=== PATIENT | male | born 1965 | race Caucasian/White ===

== ENCOUNTER 2017-03-03 16:04 | Outpatient (CLI) | payer BC, OTHER ==
[2017-03-03 12:47] LABS: BASOPHILS % (AUTO) 0.3 %; EOSINOPHILS # (AUTO) 0.2 10^3/uL (0.0-0.7); EOSINOPHILS % (AUTO) 3.1 %; HCT - HEMATOCRIT 43.7 % (42.0-52.0); HGB - HEMOGLOBIN 14.8 g/dL (14.0-18.0); LYMPHOCYTES # (AUTO) 1.7 10^3/uL (1.5-3.5); LYMPHOCYTES % (AUTO) 30.3 %; MEAN CORPUSCULAR HEMOGLOBIN 29.9 pg (27.0-31.0); MEAN CORPUSCULAR HGB CONC 33.9 g/dL (32.0-36.0); MEAN CORPUSCULAR VOLUME 88.1 fL (80.0-94.0); MEAN PLATELET VOLUME 9.8 fL (7.4-11.4); MONOCYTES # (AUTO) 0.4 10^3/uL (0.0-1.0); MONOCYTES % (AUTO) 6.5 %; NEUTROPHILS # (AUTO) 3.3 10^3/uL (1.5-6.6); NEUTROPHILS % (AUTO) 59.8 %; NUCLEATED RED BLOOD CELLS AUTO 0.1 /100WBC; RED BLOOD COUNT 4.96 10^6/uL (4.70-6.10); RED CELL DISTRIBUTION WIDTH 13.1 % (12.0-15.0); UNCORRECTED WHITE BLOOD COUNT 5.6 x10^3/uL; WHITE BLOOD COUNT 5.6 x10^3/uL (4.8-10.8)
[2017-03-03 13:07] LABS: HEMOGLOBIN A1C 0.59 g/dL
[2017-03-03 13:09] LABS: ALBUMIN/GLOBULIN RATIO 1.5 (1.0-2.2); BILIRUBIN,TOTAL 0.7 mg/dL (0.2-1.0); BUN - BLOOD UREA NITROGEN 11 mg/dL (6-20); CALCIUM 9.1 mg/dL (8.5-10.3); CARBON DIOXIDE - CO2 25 mmol/L (21-32); CHLORIDE 106 mmol/L (101-111); CHOL/HDL RATIO 4.7 (<5.0); CHOLESTEROL 159 mg/dL; CREATININE 0.9 mg/dL (0.6-1.2); GFR - MDRD 89 (>89); GLUCOSE 103 mg/dL (70-100); HDL CHOLESTEROL 34 mg/dL; LDL/HDL RATIO 2.6 (<3.6); POTASSIUM 4.1 mmol/L (3.5-5.0); SODIUM 136 mmol/L (135-145); TOTAL PROTEIN 6.9 g/dL (6.7-8.2); TRIGLYCERIDES 177 mg/dL; VLDL CHOLESTEROL 35 mg/dL
== END 2017-03-03 16:05 | disposition home or self-care (01) ==
LOC: LAB.WCP 16:04
PROVIDERS: ATTEND Family Medicine
DX: Z00.00 Encounter for general adult medical examination without abnormal findings (principal); E78.5 Hyperlipidemia, unspecified; F41.9 Anxiety disorder, unspecified; R03.0 Elevated blood-pressure reading, without diagnosis of hypertension
CPT/HCPCS: 36415; 80053; 80061; 83036; 84443; 85025

== ENCOUNTER 2017-04-21 09:39 | Outpatient (CLI) | payer BC, OTHER | END 2017-04-21 09:40 | LOC: LAB.R 09:39 | PROVIDERS: ATTEND Family Medicine | DX: R05 Cough (principal) | CPT/HCPCS: 87275; 87276 ==

== ENCOUNTER 2017-06-22 09:35 | Outpatient (CLI) | payer BC, OTHER | END 2017-06-22 09:36 | disposition home or self-care (01) | LOC: SC 09:35 | PROVIDERS: ATTEND Internal Medicine Pulmonary Disease | DX: G47.8 Other sleep disorders (principal); R06.83 Snoring | CPT/HCPCS: 99203; 99212 ==

== ENCOUNTER 2018-05-29 01:59 | Inpatient (IN) | payer BC, OTHER ==
--- NOTE | 2018-05-29 02:01 | ED Physician Documentation ---
PD HPI ABD PAIN - Stated complaint Stated Complaint: ABD PX - History obtained from History obtained from: Patient - History of Present Illness Timing - onset: How many hours ago (1) Timing - duration: Hours (1) Timing - details: Abrupt onset Pain level max: 10 Pain level now: 8 Quality: Pain Location: All over / everywhere Radiation: Other (no radiation) Improved by: Laying still Worsened by: Moving, Palpation Associated symptoms: Nausea. No: Fever, Vomiting, Diarrhea, Constipation, Chest pain Similar symptoms before: Has not had sx before Recently seen: Not recently seen - Additional information Additional information: woken from sleep at 1 AM with severe, diffuse abdominal pain. Denies h/o similar symptoms Review of Systems Constitutional: reports: Reviewed and negative Eyes: reports: Reviewed and negative Ears: reports: Reviewed and negative Nose: reports: Reviewed and negative Throat: reports: Reviewed and negative Cardiac: reports: Reviewed and negative Respiratory: reports: Reviewed and negative GI: reports: Abdominal Pain, Abdominal Swelling, Nausea. denies: Vomiting, Constipation, Diarrhea : denies: Dysuria, Frequency, Hematuria Skin: reports: Reviewed and negative Musculoskeletal: reports: Reviewed and negative Neurologic: reports: Reviewed and negative PD PAST MEDICAL HISTORY - Past Medical History Past Medical History: Yes GI: GERD Psych: Depression - Past Surgical History Past Surgical History: Yes General: Appendectomy - Present Medications Home Medications: Ambulatory Orders Medication Instructions Recorded Confirmed FLUoxetine [PROzac] 20 mg PO DAILY 05/29/18 05/29/18 Omeprazole Magnesium [Prilosec] 20 mg PO DAILY 05/29/18 05/29/18 - Allergies Allergies/Adverse Reactions: Allergies Allergy/AdvReac Type Severity Reaction Status Date / Time No Known Drug Allergies Allergy Verified 05/29/18 02:09 - Living Situation Living Arrangement: reports: At home - Social History Does the pt drink ETOH?: Yes ETOH Use: Beer (occasional) PD ED PE NORMAL - Vitals Vital signs reviewed: Yes - General General: Alert and oriented X 3, Well developed/nourished, Other (obvious severe painful distress) - HEENT HEENT: Moist mucous membranes - Neck Neck: Supple, no meningeal sign - Cardiac Cardiac: RRR, No murmur, No gallop, No rub - Respiratory Respiratory: No respiratory distress, Clear bilaterally - Abdomen Abdomen: Normal bowel sounds, Soft, Non distended - Back Back: No CVA TTP - Derm Derm: Normal color, Warm and dry PD ED PE EXPANDED - Abdomen Abdomen: Tender to palpation (diffuse tenderness, worst across upper abdomen) Results - Vitals Vitals: Vital Signs - 24 hr 05/29/18 05/29/18 05/29/18 02:06 02:11 02:15 Temperature 36.3 C L Heart Rate 93 78 80 Respiratory 22 22 22 Rate Blood Pressure 145/99 H 123/89 H 135/91 H O2 Saturation 97 95 95 05/29/18 05/29/18 05/29/18 02:30 02:37 02:55 Temperature Heart Rate 73 71 Respiratory 20 19 30 H Rate Blood Pressure 123/89 H O2 Saturation 96 05/29/18 05/29/18 05/29/18 03:11 03:34 03:37 Temperature Heart Rate 77 75 Respiratory 17 20 15 Rate Blood Pressure 137/88 H O2 Saturation 93 96 Oxygen O2 Source Nasal cannula - EKG (time done) No standard instances Rate: Rate (enter#) (82) Rhythm: NSR Lane: Normal Intervals: Normal FL QRS: Normal Ischemia: Normal ST segments - Labs Labs: Laboratory Tests 05/29/18 05/29/18 05/29/18 02:10 02:10 02:10 WBC 10.4 RBC 5.46 Hgb 16.2 Hct 48.3 MCV 88.5 MCH 29.7 MCHC 33.6 RDW 13.5 Plt Count 224 MPV 9.6 Neut # (Auto) 5.7 Lymph # (Auto) 3.5 [place] # (Auto) 0.9 Eos # (Auto) 0.2 Baso # (Auto) 0.1 Absolute Nucleated RBC 0.02 Nucleated RBC % 0.1 Sodium 140 Potassium 3.8 Chloride 103 Carbon Dioxide 25 Anion Gap 12.0 BUN 18 Creatinine 1.0 Estimated GFR (MDRD) 78 L Glucose 135 H Calcium 9.3 Total Bilirubin 0.9 AST 29 ALT 51 Alkaline Phosphatase 55 Troponin I < 0.04 Total Protein 7.3 Albumin 4.4 Globulin 2.9 Albumin/Globulin Ratio 1.5 Lipase > 4800 H - Rads (name of study) CT A/P (angio) Radiology: Prelim report reviewed, See rad report PD MEDICAL DECISION MAKING - ED course Complexity details: reviewed results, re-evaluated patient, considered differential, d/w patient Departure - Departure Disposition: [facility] DC/Xfer Clinical Impression: Pancreatitis Qualifiers: Chronicity: acute Pancreatitis type: unspecified pancreatitis type Acute pancreatitis complication: no infection or necrosis Qualified Code(s): K85.90 - Acute pancreatitis without necrosis or infection, unspecified Condition: Good Discharge Date/Time: 05/29/18 04:35
[2018-05-29] MEDS ORDERED: SODIUM CHLORIDE 0.9% 1,000 ML IV STA ×2 (02:19→03:27)
[2018-05-29] MEDS ORDERED: HYDROmorphone 1 MG/ML CARPUJECT IVP STA ×3 (02:19→03:27)
[2018-05-29] MEDS ORDERED: ONDANSETRON 4 MG/2 ML VIAL IVP STA (02:19)
[2018-05-29 02:29] LABS: BASOPHILS # (AUTO) 0.1 10^3/uL (0.0-0.1); BASOPHILS % (AUTO) 0.7 %; EOSINOPHILS # (AUTO) 0.2 10^3/uL (0.0-0.7); EOSINOPHILS % (AUTO) 1.9 %; HGB - HEMOGLOBIN 16.2 g/dL (14.0-18.0); LYMPHOCYTES # (AUTO) 3.5 10^3/uL (1.5-3.5); LYMPHOCYTES % (AUTO) 33.5 %; MEAN CORPUSCULAR HEMOGLOBIN 29.7 pg (27.0-31.0); MEAN CORPUSCULAR HGB CONC 33.6 g/dL (32.0-36.0); MEAN CORPUSCULAR VOLUME 88.5 fL (80.0-94.0); MEAN PLATELET VOLUME 9.6 fL (7.4-11.4); MONOCYTES # (AUTO) 0.9 10^3/uL (0.0-1.0); NEUTROPHILS # (AUTO) 5.7 10^3/uL (1.5-6.6); NEUTROPHILS % (AUTO) 54.9 %; PLT - PLATELET COUNT 224 10^3/uL (130-450); RED BLOOD COUNT 5.46 10^6/uL (4.70-6.10); RED CELL DISTRIBUTION WIDTH 13.5 % (12.0-15.0); WHITE BLOOD COUNT 10.4 x10^3/uL (4.8-10.8)
[2018-05-29] MEDS ORDERED: IOVERSOL 320 100 ML VIAL IVP ONE ×2 (02:30→02:58)
[2018-05-29 02:57] LABS: ALBUMIN 4.4 g/dL (3.2-5.5); ALBUMIN/GLOBULIN RATIO 1.5 (1.0-2.2); ALKALINE PHOSPHATASE 55 IU/L (42-121); ALT ALANINE AMINOTRANSFERASE 51 IU/L (10-60); AST ASPARTATE AMINOTRANSFERASE 29 IU/L (10-42); BILIRUBIN,TOTAL 0.9 mg/dL (0.2-1.0); BUN - BLOOD UREA NITROGEN 18 mg/dL (6-20); CALCIUM 9.3 mg/dL (8.5-10.3); CARBON DIOXIDE - CO2 25 mmol/L (21-32); CHLORIDE 103 mmol/L (101-111); GFR - MDRD 78 (>89); GLUCOSE 135 mg/dL (70-100); LIPASE > 4800 U/L (22-51); SODIUM 140 mmol/L (135-145); TOTAL PROTEIN 7.3 g/dL (6.7-8.2)
--- NOTE | 2018-05-29 03:10 | CT Report ---
Reason: abd. pain Procedure Date: 05/29/2018 Accession Number: [id number] / [id number] Procedure: CT - Abdomen/Pelvis Angio CPT Code: FULL RESULT: EXAM: CT ANGIOGRAM ABDOMEN AND PELVIS WITH CONTRAST EXAM DATE: 05/29/2018 02:55 AM. CLINICAL HISTORY: Abdominal pain and vomiting. COMPARISONS: None. TECHNIQUE: Routine helical CT angiogram imaging was performed through the abdomen and pelvis in the arterial phase. IV contrast: 100 ML OPTIRAY 320. Enteric contrast: No. Reconstructions: Coronal, sagittal, and 3D MIP reconstructions. In accordance with CT protocol optimization, one or more of the following dose reduction techniques were utilized for this exam: automated exposure control, adjustment of mA and/or KV based on patient size, or use of iterative reconstructive technique. FINDINGS: Vasculature: No aneurysm, dissection, or significant atherosclerotic disease of the abdominal aorta and iliac arteries. The visualized mesenteric and solid organ vascular structures are also within normal limits. Lung Bases: Bibasilar atelectasis. Small hiatal hernia. Abdominal Solid Organs: Fatty infiltration of the liver. Gallbladder shows no obvious abnormality. Mild splenomegaly measuring 13.1 cm. Pancreatic edema and peripancreatic stranding consistent with pancreatitis. No fluid collections seen. Adrenals are unremarkable. Small right renal cyst. Kidneys are otherwise unremarkable. Peritoneal Cavity: No bowel obstruction seen. Moderate stool in the colon, right greater than left. Trace amount of ascites. No free air. No lymphadenopathy. Pelvic Organs: Normal. The bladder and visualized pelvic organs are within normal limits. Bones: Degenerative disk disease at L5-S1. Other: None. IMPRESSION: 1. Acute pancreatitis. No complications seen. 2. Fatty liver and mild splenomegaly. 3. No aortic aneurysm, dissection, or other significant vascular abnormalities seen. 4. Trace amount of ascites. 5. Hiatal hernia. RADIA
[2018-05-29] MEDS ORDERED: ONDANSETRON 4 MG/2 ML VIAL IVP PRN (03:48)
[2018-05-29] MEDS ORDERED: ONDANSETRON ODT 4 MG TABLET TL PRN (03:48)
--- NOTE | 2018-05-29 04:11 | HISTORY & PHYSICAL EXAMINATION ---
Chief Complaint - Chief Complaint Chief Complaint: sudden onset abd pain, diffuse, at 1 am History of Present Illness - Admitted From Admitted From:: Home/ER - History Obtained From Records Reviewed: [facility] History obtained from: Patient and Dr. Casanova Exam Limitations: None - History of Present Illness HPI Comment/Other: This is a 53 year old obese white male who rarely drinks alcohol, has no history of gallstones that presents w sudden onset of diffuse abdominal pain at 1 am that woke him from sleep. The pain is nonradiating, diffuse, and without scapula or shoulder pain. He has had no antecedent change in the color of his stool or change in his bowel habits. There is no fever, rigors, or chills. Urine is yellow. He has no previous history of colicky abdominal pain. He came to the ER where he is afebrile and his abdominal pain is now more centered around his epigastrium and LUQ once he received IVF and dilaudid. No rebound, guarding. Severe nausea and dry heaves. Distended. Labs are without elevated WBC but his chemistries reveal lipase >4800 with normal LFT's. CTA was done since his presentation indicated possible aortic disease and he has no gallstones, no AAA, but does have evidence of pancreatitis and mild splenomegaly., He is now admitted for acute pancreatitis. History - Past Medical History Cardiovascular: reports: None Respiratory: reports: Sleep apnea (with visit to sleep center 06/2017. no sleep study yet.) Neuro: reports: Other (radiculopathy with neg back films ) Endocrine/Autoimmune: reports: None GI: reports: GERD : reports: Nocturia, Frequency, Other (testicular hypofunction) HEENT: reports: Chronic vision loss Psych: reports: Other (Social anxiety level) Musculoskeletal: reports: None Derm: reports: None MRSA Hx?: No - Past Surgical History General: reports: Appendectomy Ortho: reports: Other (left elbow surgery) - Family & Social History Family History Comment/Other: Mom is 87 and does not have HTN, DM, HPL, dementia, CAD, thyroid disease, cancer. Dad at age 86 of complications of Alzheimers. 5 sisters, 2 brothers: do not have HTN, DM, HPL, dementia, CAD, thyroid disease, cancer. No children Living arrangement: At home Living Situation: With spouse/s.o. Social History Notes: From [place] and came to [facility] 14 years ago. to his first and she has daughters from her first marriage. They live in their own home and no one lives with them. 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 He smoked and did tobacco from age [age], at most 1 ppd. No history of alcohol abuse and drinks approx 1 beer a month. No hx of recreational substance abuse. - Substance History Use: Uses substance without health or social issues: NONE Abuse: Recurrent use of substance despite neg consequences: NONE Dependence: Experiences withdrawal or developed tolerances: NONE - POLST Patient has POLST: No POLST Status: Full Code Meds/Allgy - Home Medications Home Medications: Ambulatory Orders Medication Instructions Recorded Confirmed FLUoxetine [PROzac] 20 mg PO DAILY 05/29/18 05/29/18 Omeprazole Magnesium [Prilosec] 20 mg PO DAILY 05/29/18 05/29/18 - Allergies Allergies/Adverse Reactions: Allergies Allergy/AdvReac Type Severity Reaction Status Date / Time No Known Drug Allergies Allergy Verified 05/29/18 02:09 Review of Systems - Constitutional Constitutional: reports: Diaphoresis (tonight, severe, when he got here). denies: Fatigue, Fever, Chills, Malaise, Weakness, Poor appetite - Eyes Eyes: reports: Vision loss (chronic as he has gotten older). denies: Pain, Irritation, Amaurosis, Blurred vision, Field loss - Ears, Nose & Throat Ears, Nose & Throat: denies: Ear pain, Hearing loss, Hearing aids, Tinnitus, Vertigo, Nasal congestion, Postnasal drainage, Sore throat, Hoarseness - Cardiovascular Cariovascular: denies: Irregular heart rate, Palpitations, Chest pain, Edema, Lightheadedness, Syncope, Exertional dyspnea, Decr. exercise tolerance - Respiratory Respiratory: reports: Apnea (prefers to sleep on his side because of this, doesn't use CPAP). denies: Cough, Sputum production, Wheezing, Snoring, Hemoptysis, Orthopnea - Gastrointestinal Gastrointestinal: reports: Abdominal pain, Abdominal distention, Nausea, Vom iting, Reflux/heartburn. denies: Constipation, Diarrhea, Change in bowel habits, Rectal bleeding, Black stools, Bloody stools, Bile emesis, Sky blood emesis - Genitourinary Genitourinary: reports: Frequency (with decreases stream), Urgency, Nocturia (once.). denies: Dysuria - Musculoskeletal Musculoskeletal: denies: Muscle pain, Back pain, Muscle aches, Stiffness, Gout, Joint pain - Integumentary Integumentary: denies: Rash, Pruritis, Lesions, Dryness, Lumps, Acne - Neurological Neurological: denies: General weakness, Focal weakness, Headache, Dizziness, Memory problems, Pre-existing deficit - Psychiatric Psychiatric: reports: Anxiety (social anxiety). 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 Uses no DME. No pain. No limitations. Exam - Vital Signs Reviewed Vital Signs: Yes Vital Signs: Vital Signs x48h Temp Pulse Resp BP Pulse Ox 05/29/18 04:07 36.5 C 87 17 132/96 H 97 05/29/18 03:54 88 16 137/88 H 96 05/29/18 03:37 75 15 96 05/29/18 03:34 77 20 137/88 H 93 05/29/18 03:11 17 05/29/18 02:55 71 30 H 123/89 H 96 05/29/18 02:37 19 05/29/18 02:30 73 20 05/29/18 02:15 80 22 135/91 H 95 05/29/18 02:11 78 22 123/89 H 95 05/29/18 02:06 36.3 C L 93 22 145/99 H 97 - Physical Exam General Appearance: positive: Alert, Moderate distress (with grimacing, very uncomfortable from his abd pain) Eyes Bilateral: positive: PERRL, EOMI, No scleral icterus ENT: positive: ENT inspection nml, Pharynx nml, No signs of dehydration Neck: positive: No JVD. negative: Stiff neck, Carotid bruit Respiratory: positive: Chest non-tender, Wheezes, Rales, Rhonchi Cardiovascular: positive: Regular rate & rhythm, No murmur, No gallop. negative: Tachycardia Peripheral Pulses: positive: 1+ Abdomen: positive: Other (His abd wall is distended and almost rigid, with pain diffusesly but centered at empigastrium and LUQ. No Navarro-Gerardo. One bowel sound heard. Can't assess for organomegaly from the distension and pain when I palpate.) Back: negative: CVA tenderness (R) Skin: positive: Color nml, No rash, Warm, Dry Extremities: positive: Non-tender, Full ROM, Nml appearance, No pedal edema Neurologic/Psychiatric: positive: Oriented x3, CN's nml (2-12), Motor nml, Sensation nml Reflexes: Bicep (R): 1+, Bicep (L): 1+, Knee (R): 1+, Knee (L): 1+, Ankle (R): 0, Ankle (L): 0 Babinski Reflex: Right: Down, Left: Down Conclusion/Plan - Problem List (1) Acute pancreatitis Conclusion/Plan: I explained that we feel he has pancreatitis and that the usual causes are gallstones or alcohol, of which he has neither. CT of the abdomen shows interstial edematous pancreatitis. Causes have been evaluated. He doesn't have diabetes and there is no history of hypertriglyceridemia. When his blood was drawn tonight, it is normal color. His medications are not associated with pancreatitis. He doesn't have prior surgery nor has there been an ERCP. Other causes could be tumor, pancreas divisum, sphinter of Oddi dysfunction or idiopathic. There is no elevated white cell count, Calcium normal, BUN/Creat are normal, LFT's are normal. There is no organ failure and I explained the difference between mild, moderate or severe pancreatitis. While he is terrible pain, he appears to have mild pancreatitis. [place]'s criteria at 0 hours: all negative (<55, < 16K WBC, <200 glucose, <AST 250, and no LDH done). SAPS 3 has age giving him 5 points and all else 0. Plan: acute inpatient stay for this supportive care with pain meds, antiemetics, NPO status, IVF for hydration This appears to be an isolated event without clear etiology and he would be a candidate for endoscopic US to evaluate for ductal abnormalities, tumor, microlithiasis but we don't have that available here. MRCP can be done but not on the weekends, so we can order for Thursday. Repeat daily CMP. Check CRP FAsting lipid panel this am Recalculate [place]'s criteria at 48 hours. Qualifiers: Pancreatitis type: idiopathic (2) Acid indigestion Conclusion/Plan: Hiatal hernia seen on CT. PPI IV (3) Fatty (change of) liver, not elsewhere classified Conclusion/Plan: pathophysiology and natural history described to patient. He is developing splenomegaly., LFT's are nml. Weight loss advised. Plan: hepatitis serology (4) FRANCOISE (obstructive sleep apnea) Conclusion/Plan: if has severe symptoms while here, consider overnight oxymetry. (5) Full code status Conclusion/Plan: noted. - Lab Results Lab results reviewed: Yes Fish Bones: 05/29/18 02:10 05/29/18 02:10 - Diagnostic Imaging Results Diagnostic Imaging Results: positive: Final report reviewed Diagnostic Imaging Results Comments: EXAM: [id number] CT/ABPEANG ([id number]) Reason: abd. pain Procedure Date: 05/29/2018 Accession Number: [id number] / [id number] Procedure: CT - Abdomen/Pelvis Angio CPT Code: FULL RESULT: EXAM: CT ANGIOGRAM ABDOMEN AND PELVIS WITH CONTRAST EXAM DATE: 05/29/2018 02:55 AM. CLINICAL HISTORY: Abdominal pain and vomiting. COMPARISONS: None. TECHNIQUE: Routine helical CT angiogram imaging was performed through the abdomen and pelvis in the arterial phase. IV contrast: 100 ML OPTIRAY 320. Enteric contrast: No. Reconstructions: Coronal, sagittal, and 3D MIP reconstructions. In accordance with CT protocol optimization, one or more of the following dose reduction techniques were utilized for this exam: automated exposure control, adjustment of mA and/or KV based on patient size, or use of iterative reconstructive technique. FINDINGS: Vasculature: No aneurysm, dissection, or significant atherosclerotic disease of the abdominal aorta and iliac arteries. The visualized mesenteric and solid organ vascular structures are also within normal limits. Lung Bases: Bibasilar atelectasis. Small hiatal hernia. Abdominal Solid Organs: Fatty infiltration of the liver. Gallbladder shows no obvious abnormality. Mild splenomegaly measuring 13.1 cm. Pancreatic edema and peripancreatic stranding consistent with pancreatitis. No fluid collections seen. Adrenals are unremarkable. Small right renal cyst. Kidneys are otherwise unremarkable. Peritoneal Cavity: No bowel obstruction seen. Moderate stool in the colon, right greater than left. Trace amount of ascites. No free air. No lymphadenopathy. Pelvic Organs: Normal. The bladder and visualized pelvic organs are within normal limits. Bones: Degenerative disk disease at L5-S1. Other: None. IMPRESSION: 1. Acute pancreatitis. No complications seen. 2. Fatty liver and mild splenomegaly. 3. No aortic aneurysm, dissection, or other significant vascular abnormalities seen. 4. Trace amount of ascites. 5. Hiatal hernia. Core Measures - Anticipated LOS I expect patient to be DC'd or transferred within 96 hours.: Yes - DVT/VTE - Prophylaxis VTE/DVT Device ordered at admit?: Yes
[2018-05-29] MEDS: SODIUM CHLORIDE 0.9% 1,000 ML IV SCH ×3 (05:32→22:32)
[2018-05-29] MEDS: HYDROmorphone 1 MG/ML CARPUJECT IVP PRN ×2 (05:36→07:56)
[2018-05-29] MEDS: PROCHLORPERAZINE 10 MG/2 ML VIAL IVP PRN ×3 (05:48→22:33)
[2018-05-29] MEDS: SODIUM CHLORIDE FLUSH 0.9% 10 ML SYRINGE IVP PRN ×2 (05:54→06:54)
[2018-05-29] MEDS: PANTOPRAZOLE 40 MG VIAL IVP SCH ×2 (06:54→15:49)
[2018-05-29] MEDS ORDERED: HYDROmorphone PCA 20MG/100ML IV PRN (07:59)
--- NOTE | 2018-05-29 08:01 | PROVIDER PROGRESS NOTE ---
Subjective - Prog Note Date Prog Note Date: 05/29/18 Prog Note Time: 07:55 - Subjective Subjective: With continued abdominal pain not being relieved with current dose of IV dilaudid Is not passing gas No further episodes of emesis since the ER On 2L abdominal pain Current Medications - Current Medications Current Medications: Active Medications Hydromorphone HCl (Dilaudid Product Management Specialist 20mg/100ml) 0 mg IV PRN PRN; Protocol PRN Reason: Abdominal Pain Sodium Chloride (Normal Saline 0.9%) 1,000 mls @ 100 mls/hr IV .Q10H [facility] Last Admin: 05/29/18 05:32 Dose: Not Given Ondansetron HCl (Zofran Inj) 4 mg IVP Q6HR PRN PRN Reason: Nausea / Vomiting Ondansetron HCl (Zofran Odt) 4 mg TL Q6HR PRN PRN Reason: Nausea / Vomiting Pantoprazole Sodium (Protonix) 40 mg IVP BIDAC [facility] Last Admin: 05/29/18 06:54 Dose: 40 mg Polyethylene Glycol (Miralax) 17 gm PO DAILY [facility] Prochlorperazine Edisylate (Compazine Inj) 10 mg IVP Q6HR PRN PRN Reason: Nausea / Vomiting Last Admin: 05/29/18 05:48 Dose: 10 mg Sodium Chloride (Normal Saline Flush 0.9%) 10 ml IVP PRN PRN PRN Reason: NEEDED PER PROVIDER ORDERS Last Admin: 05/29/18 06:54 Dose: 10 ml Sodium Chloride (Normal Saline Flush 0.9%) 10 ml IVP 0100,0900,1700 [facility] Home Medications: FLUoxetine [PROzac] 20 mg PO DAILY 05/29/18 Omeprazole Magnesium [Prilosec] 20 mg PO DAILY 05/29/18 Objective - Vital Signs/Intake & Output Reviewed Vital Signs: Yes Vital Signs: Vital Signs x48h Temp Pulse Pulse Resp BP BP Pulse Ox 05/29/18 04:40 36.4 C L 95 20 124/79 95 05/29/18 04:22 83 20 96 05/29/18 04:07 36.5 C 87 17 132/96 H 97 05/29/18 03:54 88 16 137/88 H 96 05/29/18 03:37 75 15 96 05/29/18 03:34 77 20 137/88 H 93 05/29/18 03:11 17 05/29/18 02:55 71 30 H 123/89 H 96 05/29/18 02:37 19 05/29/18 02:30 73 20 05/29/18 02:15 80 22 135/91 H 95 05/29/18 02:11 78 22 123/89 H 95 05/29/18 02:06 36.3 C L 93 22 145/99 H 97 Intake & Output: Intake & Output 05/26/18 05/27/18 05/28/18 05/29/18 23:59 23:59 23:59 23:59 Intake Total 1000 Balance 1000 - Objective General Appearance: positive: No acute distress, Alert, Other (appears uncomfortable) Eyes Bilateral: positive: Normal inspection, PERRL, EOMI, No scleral icterus ENT: positive: Dry mucous membranes Neck: positive: Nml inspection, No JVD Respiratory: positive: No respiratory distress, Breath sounds nml Cardiovascular: positive: Regular rate & rhythm, No murmur, No gallop. negative: Tachycardia Peripheral Pulses: 2+ Dorsalis pedis (R), 2+ Dorsalis pedis (L) Abdomen: positive: Tenderness, Abnml bowel sounds (Bowel sounds are hypoactive. His abdomen is diffusely tender to palpation. No beltran pinto's sign.), Other. negative: Guarding, Rebound Skin: positive: Warm, Dry Extremities: positive: Non-tender, Full ROM Neurologic/Psychiatric: positive: Oriented x3, CN's nml (2-12), Motor nml, Sensation nml, Mood/affect nml - Lab Results Fish Bones: 05/29/18 02:10 05/29/18 02:10 Other Labs: Lab Results x24hrs 05/29/18 05/29/18 05/29/18 Range/Units 02:10 02:10 02:10 WBC 10.4 (4.8-10.8) x10^3/uL RBC 5.46 (4.70-6.10) 10^6/uL Hgb 16.2 (14.0-18.0) g/dL Hct 48.3 (42.0-52.0) % MCV 88.5 (80.0-94.0) fL MCH 29.7 (27.0-31.0) pg MCHC 33.6 (32.0-36.0) g/dL RDW 13.5 (12.0-15.0) % Plt Count 224 (130-450) 10^3/uL MPV 9.6 (7.4-11.4) fL Neut # (Auto) 5.7 (1.5-6.6) 10^3/uL Lymph # (Auto) 3.5 (1.5-3.5) 10^3/uL [place] # (Auto) 0.9 (0.0-1.0) 10^3/uL Eos # (Auto) 0.2 (0.0-0.7) 10^3/uL Baso # (Auto) 0.1 (0.0-0.1) 10^3/uL Absolute Nucleated RBC 0.02 x10^3/uL Nucleated RBC % 0.1 /100WBC Sodium 140 (135-145) mmol/L Potassium 3.8 (3.5-5.0) mmol/L Chloride 103 (101-111) mmol/L Carbon Dioxide 25 (21-32) mmol/L Anion Gap 12.0 (6-13) BUN 18 (6-20) mg/dL Creatinine 1.0 (0.6-1.2) mg/dL Estimated GFR (MDRD) 78 L (>89) Glucose 135 H (70-100) mg/dL Calcium 9.3 (8.5-10.3) mg/dL Total Bilirubin 0.9 (0.2-1.0) mg/dL AST 29 (10-42) IU/L ALT 51 (10-60) IU/L Alkaline Phosphatase 55 (42-121) IU/L Troponin I < 0.04 (<0.49) ng/mL Total Protein 7.3 (6.7-8.2) g/dL Albumin 4.4 (3.2-5.5) g/dL Globulin 2.9 (2.1-4.2) g/dL Albumin/Globulin Ratio 1.5 (1.0-2.2) Lipase > 4800 H (22-51) U/L Assessment/Plan - Problem List (1) Acute pancreatitis Impression: CT of the abdomen shows interstial edematous pancreatitis. Causes have been evaluated. He doesn't have diabetes and there is no history of hy pertriglyceridemia. His medications are not associated with pancreatitis. He doesn't have prior surgery nor has there been an ERCP. Other ddx includes tumor, pancreas divisum, sphinter of Oddi dysfunction or idiopathic. On admission there was no elevated white cell count, calcium was normal, BUN/Creat normal, LFT's normal. He appears to have mild pancreatitis. [place]'s criteria at 0 hours: all negative (<55, < 16K WBC, <200 glucose, <AST 250, and no LDH done). SAPS 3 has age giving him 5 points and all else 0. This appears to be an isolated event without clear etiology and he would be a candidate for endoscopic US to evaluate for ductal abnormalities, tumor, microlithiasis but we don't have that available here. MRCP can be done but not on the s, so we can order for Thursday. 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 repeat daily CBC and CMP. CRP level pending fasting lipid panel is pending recalculate [place]'s criteria at 48 hours. Qualifiers: Pancreatitis type: idiopathic (2) Acid indigestion Impression: Hiatal hernia seen on CT. Plan: PPI IV (3) Fatty (change of) liver, not elsewhere classified Impression: seen on imaging. He is developing splenomegaly, LFT's are nml. Plan: Weight loss advised. hepatitis serology (4) FRANCOISE (obstructive sleep apnea) Plan: if has severe symptoms while here, consider overnight oximetry. Qualifiers: Pancreatitis type: idiopathic
[2018-05-29 09:38] LABS: BUN - BLOOD UREA NITROGEN 18 mg/dL (6-20); CALCIUM 8.7 mg/dL (8.5-10.3); CARBON DIOXIDE - CO2 26 mmol/L (21-32); CHLORIDE 103 mmol/L (101-111); CREATININE 0.8 mg/dL (0.6-1.2); GFR - MDRD 101 (>89); GLUCOSE 160 mg/dL (70-100); SODIUM 137 mmol/L (135-145)
[2018-05-29 10:08] LABS: CRP - C-REACTIVE PROTEIN < 1.0 mg/dL (0-1.0)
[2018-05-29 10:38] LABS: CHOL/HDL RATIO 4.1 (<5.0); CHOLESTEROL 141 mg/dL; HDL CHOLESTEROL 34 mg/dL; LDL CHOLESTEROL,CALCULATED 86 mg/dL; LDL/HDL RATIO 2.5 (<3.6); VLDL CHOLESTEROL 21 mg/dL
[2018-05-29] MEDS: POLYETHYLENE GLYCOL 3350 17 GM PACKET PO SCH (12:22)
[2018-05-29] MEDS: SODIUM CHLORIDE FLUSH 0.9% 10 ML SYRINGE IVP SCH ×2 (12:23→15:49)
[2018-05-29 16:25] LABS: BILIRUBIN,URINE NEGATIVE (NEGATIVE); CLARITY,URINE CLEAR (CLEAR); GLUCOSE, URINE (UA) NEGATIVE (NEGATIVE); KETONES,URINE (UA) NEGATIVE (NEGATIVE); LEUKOCYTE ESTERASE, URINE NEGATIVE (NEGATIVE); NITRITE,URINE NEGATIVE (NEGATIVE); OCCULT BLOOD,URINE TRACE-INTA (NEGATIVE); PROTEIN,URINE NEGATIVE (NEGATIVE); UROBILINOGEN,URINE 0.2 (NORMAL) E.U./dL (NORMAL)
[2018-05-30] MEDS: SODIUM CHLORIDE FLUSH 0.9% 10 ML SYRINGE IVP SCH ×3 (01:32→15:39)
[2018-05-30 06:13] LABS: BASOPHILS % (AUTO) 0.3 %; LYMPHOCYTES # (AUTO) 0.6 10^3/uL (1.5-3.5); LYMPHOCYTES % (AUTO) 3.3 %; MEAN CORPUSCULAR HEMOGLOBIN 29.3 pg (27.0-31.0); MEAN CORPUSCULAR HGB CONC 32.2 g/dL (32.0-36.0); MEAN CORPUSCULAR VOLUME 91.1 fL (80.0-94.0); MEAN PLATELET VOLUME 9.5 fL (7.4-11.4); MONOCYTES # (AUTO) 0.9 10^3/uL (0.0-1.0); MONOCYTES % (AUTO) 4.9 %; NEUTROPHILS # (AUTO) 16.7 10^3/uL (1.5-6.6); NEUTROPHILS % (AUTO) 91.5 %; PLT - PLATELET COUNT 168 10^3/uL (130-450); RED BLOOD COUNT 5.46 10^6/uL (4.70-6.10); RED CELL DISTRIBUTION WIDTH 13.6 % (12.0-15.0); WHITE BLOOD COUNT 18.2 x10^3/uL (4.8-10.8)
[2018-05-30 06:30] LABS: ALBUMIN 3.7 g/dL (3.2-5.5); ALBUMIN/GLOBULIN RATIO 1.3 (1.0-2.2); BILIRUBIN,TOTAL 1.4 mg/dL (0.2-1.0); CALCIUM 8.7 mg/dL (8.5-10.3); CREATININE 0.7 mg/dL (0.6-1.2); TOTAL PROTEIN 6.6 g/dL (6.7-8.2)
[2018-05-30] MEDS: PANTOPRAZOLE 40 MG VIAL IVP SCH ×2 (06:48→15:39)
[2018-05-30] MEDS: SODIUM CHLORIDE FLUSH 0.9% 10 ML SYRINGE IVP PRN (06:48)
[2018-05-30] MEDS ORDERED: HYDROmorphone PCA 20MG/100ML IV PRN ×3 (06:54→15:07)
[2018-05-30 08:24] LABS: ABG PCO2 47 mmHg (34-45); ABG PH 7.36 (7.35-7.45); ABG PO2 69 mmHg (80-100)
[2018-05-30 08:25] LABS: ABG BASE EXCESS 0.2 mmol/L (-2.0-3.0); ABG HCO3 26.3 mmol/L (22.0-26.0); ABG OXYGEN SATURATION 94 % (94-98); ABG TCO2 27.8 MMOL/L (21.0-29.0); ALLEN TEST POSITIVE
[2018-05-30] MEDS: SENNA 8.6 MG TABLET PO SCH (09:02)
[2018-05-30] MEDS: SODIUM CHLORIDE 0.9% 1,000 ML IV SCH ×2 (09:03→19:34)
[2018-05-30] MEDS: POLYETHYLENE GLYCOL 3350 17 GM PACKET PO SCH (09:04)
--- NOTE | 2018-05-30 12:25 | PROVIDER PROGRESS NOTE ---
Subjective - Prog Note Date Prog Note Date: 05/30/18 Prog Note Time: 08:20 - Subjective Subjective: Patient with uncontrolled pain overnight -- continuous dilaudid was added to his [employer] He reports improved pain control today, but still with alot of pain His lipase level is much improved today, down to 744 WBC up to 18.2 today HR increasing, BP elevated, with a low grade temperature of 37.6 Benson catheter inserted overnight secondary to retention He has burped, but denies passing flatus He is thirsty, requesting ice chips Current Medications - Current Medications Current Medications: Active Medications Hydromorphone HCl (Dilaudid [employer] 20mg/100ml) 0 mg IV PRN PRN; Protocol PRN Reason: Abdominal Pain Sodium Chloride (Normal Saline 0.9%) 1,000 mls @ 100 mls/hr IV .Q10H [facility] Last Admin: 05/30/18 09:03 Dose: 100 mls/hr Ondansetron HCl (Zofran Inj) 4 mg IVP Q6HR PRN PRN Reason: Nausea / Vomiting Ondansetron HCl (Zofran Odt) 4 mg TL Q6HR PRN PRN Reason: Nausea / Vomiting Pantoprazole Sodium (Protonix) 40 mg IVP BIDAC [facility] Last Admin: 05/30/18 06:48 Dose: 40 mg Polyethylene Glycol (Miralax) 17 gm PO DAILY [facility] Last Admin: 05/30/18 09:04 Dose: Not Given Prochlorperazine Edisylate (Compazine Inj) 10 mg IVP Q6HR PRN PRN Reason: Nausea / Vomiting Last Admin: 05/29/18 22:33 Dose: 10 mg Senna (Senokot) 8.6 - 17.2 mg PO DAILY [facility] Last Admin: 05/30/18 09:02 Dose: 8.6 mg Sodium Chloride (Normal Saline Flush 0.9%) 10 ml IVP PRN PRN PRN Reason: NEEDED PER PROVIDER ORDERS Last Admin: 05/30/18 06:48 Dose: 10 ml Sodium Chloride (Normal Saline Flush 0.9%) 10 ml IVP 0100,0900,1700 [facility] Last Admin: 05/30/18 09:03 Dose: Not Given Home medications: FLUoxetine [PROzac] 20 mg PO DAILY 05/29/18 Omeprazole Magnesium [Prilosec] 20 mg PO DAILY 05/29/18 Objective - Vital Signs/Intake & Output Reviewed Vital Signs: Yes Vital Signs: Vital Signs x48h Temp Pulse Pulse Resp BP Pulse Ox 05/30/18 12:17 37.6 C H 110 H 18 94 05/30/18 09:54 18 05/30/18 09:40 37.6 C H 118 H 18 151/92 H 94 05/30/18 08:00 37.5 C 121 H 14 149/98 H 94 05/30/18 06:12 160/100 H 05/30/18 06:04 37.1 C 114 H 20 148/101 H 93 Intake & Output: Intake & Output 05/27/18 05/28/18 05/29/18 05/30/18 23:59 23:59 23:59 23:59 Intake Total 3000 1000 Output Total 1425 575 Balance 1575 425 - Objective General Appearance: positive: No acute distress, Lethargic (will awaken to voice) Eyes Bilateral: positive: Normal inspection, PERRL ENT: positive: Dry mucous membranes Neck: positive: Nml inspection, Trachea midline Respiratory: positive: No respiratory distress (saturating well on 3L NC), Breath sounds nml Cardiovascular: positive: Regular rate & rhythm, Tachycardia Peripheral Pulses: 2+ Dorsalis pedis (R), 2+ Dorsalis pedis (L) Abdomen: positive: Tenderness, Abnml bowel sounds (hypoactive). negative: No distention, Guarding, Rebound Skin: positive: Warm, Dry Neurologic/Psychiatric: positive: Oriented x3, CN's nml (2-12), Motor nml, Sensation nml, Mood/affect nml - Lab Results Fish Bones: 05/30/18 05:52 05/30/18 05:52 Other Labs: Lab Results x24hrs 05/30/18 05/30/18 05/30/18 Range/Units 08:18 05:52 05:52 WBC 18.2 H (4.8-10.8) x10^3/uL RBC 5.46 (4.70-6.10) 10^6/uL Hgb 16.0 (14.0-18.0) g/dL Hct 49.8 (42.0-52.0) % MCV 91.1 (80.0-94.0) fL MCH 29.3 (27.0-31.0) pg MCHC 32.2 (32.0-36.0) g/dL RDW 13.6 (12.0-15.0) % Plt Count 168 (130-450) 10^3/uL MPV 9.5 (7.4-11.4) fL Neut # (Auto) 16.7 H (1.5-6.6) 10^3/uL Lymph # (Auto) 0.6 L (1.5-3.5) 10^3/uL [place] # (Auto) 0.9 (0.0-1.0) 10^3/uL Eos # (Auto) 0.0 (0.0-0.7) 10^3/uL Baso # (Auto) 0.0 (0.0-0.1) 10^3/uL Absolute Nucleated RBC 0.01 x10^3/uL Nucleated RBC % 0.1 /100WBC Bld Gas Analysis Time 0818 Sample Site RIGHT RADIAL ABG pH 7.36 (7.35-7.45) ABG pCO2 47 H (34-45) mmHg ABG pO2 69 L (80-100) mmHg ABG HCO3 26.3 H (22.0-26.0) mmol/L ABG Total CO2 27.8 (21.0-29.0) MMOL/L ABG O2 Saturation 94 (94-98) % ABG Base Excess 0.2 (-2.0-3.0) mmol/L Elijah Test POSITIVE O2 Delivery Device NASAL CANNULA O2 Liters/Min 3.00 LPM Sodium 138 (135-145) mmol/L Potassium 3.8 (3.5-5.0) mmol/L Chloride 103 (101-111) mmol/L Carbon Dioxide 27 (21-32) mmol/L Anion Gap 8.0 (6-13) BUN 19 (6-20) mg/dL Creatinine 0.7 (0.6-1.2) mg/dL Estimated GFR (MDRD) 118 (>89) Glucose 136 H (70-100) mg/dL Calcium 8.7 (8.5-10.3) mg/dL Total Bilirubin 1.4 H (0.2-1.0) mg/dL AST 23 (10-42) IU/L ALT 38 (10-60) IU/L Alkaline Phosphatase 51 (42-121) IU/L Total Protein 6.6 L (6.7-8.2) g/dL Albumin 3.7 (3.2-5.5) g/dL Globulin 2.9 (2.1-4.2) g/dL Albumin/Globulin Ratio 1.3 (1.0-2.2) Amylase 744 H* (28-100) U/L Lipase 348 H (22-51) U/L Urine Color Urine Clarity (CLEAR) Urine pH (5.0-7.5) PH Ur Specific [place] (1.002-1.030) Urine Protein (NEGATIVE) mg/dL Urine Glucose (UA) (NEGATIVE) mg/dL Urine Ketones (NEGATIVE) mg/dL Urine Occult Blood (NEGATIVE) Urine Nitrite (NEGATIVE) Urine Bilirubin (NEGATIVE) Urine Urobilinogen (NORMAL) E.U./dL Ur Leukocyte Esterase (NEGATIVE) Ur Microscopic Review Urine Culture Comments 05/29/18 05/29/18 Range/Units 17:20 16:05 WBC (4.8-10.8) x10^3/uL RBC (4.70-6.10) 10^6/uL Hgb (14.0-18.0) g/dL Hct (42.0-52.0) % MCV (80.0-94.0) fL MCH (27.0-31.0) pg MCHC (32.0-36.0) g/dL RDW (12.0-15.0) % Plt Count (130-450) 10^3/uL MPV (7.4-11.4) fL Neut # (Auto) (1.5-6.6) 10^3/uL Lymph # (Auto) (1.5-3.5) 10^3/uL [place] # (Auto) (0.0-1.0) 10^3/uL Eos # (Auto) (0.0-0.7) 10^3/uL Baso # (Auto) (0.0-0.1) 10^3/uL Absolute Nucleated RBC x10^3/uL Nucleated RBC % /100WBC Bld Gas Analysis Time Sample Site ABG pH (7.35-7.45) ABG pCO2 (34-45) mmHg ABG pO2 (80-100) mmHg ABG HCO3 (22.0-26.0) mmol/L ABG Total CO2 (21.0-29.0) MMOL/L ABG O2 Saturation (94-98) % ABG Base Excess (-2.0-3.0) mmol/L Elijah Test O2 Delivery Device O2 Liters/Min LPM Sodium (135-145) mmol/L Potassium 4.0 (3.5-5.0) mmol/L Chloride (101-111) mmol/L Carbon Dioxide (21-32) mmol/L Anion Gap (6-13) BUN (6-20) mg/dL Creatinine (0.6-1.2) mg/dL Estimated GFR (MDRD) (>89) Glucose (70-100) mg/dL Calcium (8.5-10.3) mg/dL Total Bilirubin (0.2-1.0) mg/dL AST (10-42) IU/L ALT (10-60) IU/L Alkaline Phosphatase (42-121) IU/L Total Protein (6.7-8.2) g/dL Albumin (3.2-5.5) g/dL Globulin (2.1-4.2) g/dL Albumin/Globulin Ratio (1.0-2.2) Amylase (28-100) U/L Lipase (22-51) U/L Urine Color YELLOW Urine Clarity CLEAR (CLEAR) Urine pH 5.0 (5.0-7.5) PH Ur Specific [place] 1.025 (1.002-1.030) Urine Protein NEGATIVE (NEGATIVE) mg/dL Urine Glucose (UA) NEGATIVE (NEGATIVE) mg/dL Urine Ketones NEGATIVE (NEGATIVE) mg/dL Urine Occult Blood [place] (NEGATIVE) Urine Nitrite NEGATIVE (NEGATIVE) Urine Bilirubin NEGATIVE (NEGATIVE) Urine Urobilinogen 0.2 (NORMAL) (NORMAL) E.U./dL Ur Leukocyte Esterase NEGATIVE (NEGATIVE) Ur Microscopic Review NOT INDICATED Urine Culture Comments NOT INDICATED Assessment/Plan - Problem List (1) Acute pancreatitis Impression: CT of the abdomen shows interstial edematous pancreatitis. Causes have been evaluated. He doesn't have diabetes nor elevated triglycerides. His medications are not associated with pancreatitis. He doesn't have prior surgery nor has there been an ERCP. Other ddx includes tumor, pancreas divisum, sphinter of Oddi dysfunction or idiopathic. On admission there was no elevated white cell count, calcium was normal, BUN/Creat normal, LFT's normal. He appears to have mild pancreatitis. Metuchen's criteria at 0 hours: all negative (<55, < 16K WBC, <200 glucose, <AST 250, and no LDH done). SAPS 3 has age giving him 5 points and all else 0. This appears to be an isolated event without clear etiology and he would be a candidate for endoscopic US to evaluate for ductal abnormalities, tumor, microlithiasis but we don't have that available here. CRP was <1. His pain was not controlled overnight so a basal rate was started on his [employer]. His WBC is elevated today to 18.2, he has a low grade temperature and his heart rate has been elevated. Metuchen's criteria at 48 hours is 0: Hct stable, BUN increased by 1, Ca >8, Arterial Po2 >60, base deficit <4, fluid needs <6L. Plan: continue supportive care with pain meds, antiemetics, IVF for hydration ice chips for comfort repeat daily CBC and CMP. will consider obtaining MRCP tomorrow Qualifiers: Pancreatitis type: idiopathic (2) Acid indigestion Impression: Hiatal hernia seen on CT. Plan: PPI IV (3) Fatty (change of) liver, not elsewhere classified Impression: seen on imaging. He is developing splenomegaly, LFT's are nml. Plan: Weight loss advised. hepatitis serology pending (4) FRANCOISE (obstructive sleep apnea) Impression: ABG today 7.36/47.4/26.3/68.8 Plan: if has severe symptoms while here, consider overnight oximetry. while patient is on high doses of narcotics, watch his respiratory status closely Qualifiers: Pancreatitis type: idiopathic Qualifiers: Pancreatitis type: idiopathic
[2018-05-31] MEDS: SODIUM CHLORIDE FLUSH 0.9% 10 ML SYRINGE IVP SCH ×3 (04:25→17:27)
[2018-05-31 05:14] LABS: BASOPHILS % (AUTO) 0.1 %; HGB - HEMOGLOBIN 15.1 g/dL (14.0-18.0); LYMPHOCYTES # (AUTO) 0.7 10^3/uL (1.5-3.5); LYMPHOCYTES % (AUTO) 4.4 %; MEAN CORPUSCULAR HEMOGLOBIN 29.7 pg (27.0-31.0); MEAN CORPUSCULAR HGB CONC 32.5 g/dL (32.0-36.0); MEAN CORPUSCULAR VOLUME 91.3 fL (80.0-94.0); MEAN PLATELET VOLUME 9.7 fL (7.4-11.4); MONOCYTES # (AUTO) 1.2 10^3/uL (0.0-1.0); MONOCYTES % (AUTO) 7.1 %; NEUTROPHILS # (AUTO) 14.4 10^3/uL (1.5-6.6); NEUTROPHILS % (AUTO) 88.4 %; PLT - PLATELET COUNT 142 10^3/uL (130-450); RED BLOOD COUNT 5.06 10^6/uL (4.70-6.10); WHITE BLOOD COUNT 16.3 x10^3/uL (4.8-10.8)
[2018-05-31] MEDS: SODIUM CHLORIDE 0.9% 1,000 ML IV SCH ×2 (05:23→15:57)
[2018-05-31 05:55] LABS: ALBUMIN 3.3 g/dL (3.2-5.5); ALBUMIN/GLOBULIN RATIO 1.1 (1.0-2.2); CALCIUM 8.8 mg/dL (8.5-10.3); CREATININE 0.8 mg/dL (0.6-1.2); TOTAL PROTEIN 6.2 g/dL (6.7-8.2)
[2018-05-31] MEDS: SODIUM CHLORIDE FLUSH 0.9% 10 ML SYRINGE IVP PRN (06:16)
[2018-05-31] MEDS: PANTOPRAZOLE 40 MG VIAL IVP SCH ×2 (06:16→16:11)
[2018-05-31] MEDS ORDERED: IOVERSOL 320 100 ML VIAL IVP ONE ×2 (07:53→09:48)
[2018-05-31] MEDS ORDERED: IOVERSOL 320 50 ML VIAL ONE (07:53)
[2018-05-31] MEDS: MEROPENEM 1 GM in SODIUM CHLORIDE 0.9% MINIBAG 100 ML IV SCH ×2 (09:02→16:06)
[2018-05-31] MEDS ORDERED: IOVERSOL 320 50 ML VIAL PO ONE (09:48)
--- NOTE | 2018-05-31 10:02 | CT Report ---
Reason: admitted with pancreatitis, now with elevated wbc Procedure Date: 05/31/2018 Accession Number: [id number] / [id number] Procedure: CT - Abdomen/Pelvis W/ CPT Code: FULL RESULT: EXAM: CT ABDOMEN AND PELVIS EXAM DATE: 05/31/2018 09:46 AM. CLINICAL HISTORY: Pancreatitis now WBC COMPARISONS: ABDOMEN/PELVIS ANGIO 05/29/2018 2:43 AM. TECHNIQUE: Routine helical CT imaging was performed through the abdomen and pelvis. IV contrast: OPTI 320 100mL. Enteric contrast: No. Reconstructions: Coronal and sagittal. In accordance with CT protocol optimization, one or more of the following dose reduction techniques were utilized for this exam: automated exposure control, adjustment of mA and/or KV based on patient size, or use of iterative reconstructive technique. FINDINGS: Lung Bases: Linear changes are noted in the lung bases that most likely represent atelectasis. Small bilateral pleural effusions are noted. These findings are new since the previous study. Solid organs: There is diffuse fatty infiltration of the liver. The spleen is normal in appearance. There is redemonstration of extensive fat stranding surrounding the pancreas consistent with the known acute pancreatitis. Fluid is noted within both paracolic gutters. A small amount of free fluid is seen within the pelvis. There is no focal fluid collection to suggest the presence of an abscess. Decreased enhancement is noted with in the head and proximal body of the pancreas measuring approximately 4.3 x 3.1 cm (image 40 of series 3). This may represent pancreatic necrosis. The kidneys are without evidence of an enhancing mass or hydronephrosis. Peritoneal Cavity/Bowel: There are no dilated loops of bowel to suggest the presence of an obstruction. The appendix is not clearly identified. There is no CT evidence of acute appendicitis. Pelvic Organs: A moderate amount of free fluid is noted that is new since the previous study. No mass or cyst is identified. Vasculature: There is no evidence of an abdominal aortic aneurysm. Bones: There are degenerative changes of the lumbar spine. IMPRESSION: Redemonstration of acute pancreatitis with probable pancreatic necrosis involving the head and proximal body of the pancreas. Interval increase in the free peritoneal fluid without definite evidence of an abscess. New, small bilateral pleural effusions. New, increased lung markings in both lung bases but most likely represent atelectasis and less likely infiltrates. RADIA
[2018-05-31] MEDS ORDERED: ACETAMINOPHEN 650 MG SUPP PR PRN (10:18)
[2018-05-31] MEDS: ACETAMINOPHEN 325 MG TABLET PO PRN ×2 (10:30→16:18)
[2018-05-31] MEDS: POLYETHYLENE GLYCOL 3350 17 GM PACKET PO SCH (10:30)
[2018-05-31] MEDS: SENNA 8.6 MG TABLET PO SCH (10:30)
[2018-05-31 13:46] LABS: HEPATITIS B SURFACE ANTIGEN NON-REACTIVE (NON-REACTIVE); HEPATITIS C ANTIBODY NON-REACTIVE (NON-REACTIVE)
--- NOTE | 2018-05-31 14:14 | PROVIDER PROGRESS NOTE ---
Subjective - Prog Note Date Prog Note Date: 05/31/18 Prog Note Time: 08:00 - Subjective Subjective: Patient reports improved abdominal pain He is in the middle of drinking his contrast for his CT scan He complains of indigestion He was able to ambulate to sit in the chair WBC down to 16 CRP elevated to 27 Tbili increased to 2.0 HR remains elevated Meropenem started this morning Spoke in length with patient's daughter, Yuliya this morning on the phone. Current Medications - Current Medications Current Medications: Acetaminophen (Tylenol) 650 mg IA Q6HR PRN PRN Reason: Pain or Fever > 38C (100.4F) Acetaminophen (Tylenol) 650 mg PO Q6HR PRN PRN Reason: Pain or Fever > 38C (100.4F) Last Admin: 05/31/18 10:30 Dose: 650 mg Hydromorphone HCl (Dilaudid [employer]per 20mg/100ml) 0 mg IV PRN PRN; Protocol PRN Reason: Abdominal Pain Last Admin: 05/30/18 15:43 Dose: 0.2 mg Sodium Chloride (Normal Saline 0.9%) 1,000 mls @ 100 mls/hr IV .Q10H [facility] Last Admin: 05/31/18 05:23 Dose: 100 mls/hr Meropenem 1 gm/ Sodium (Chloride) 100 mls @ 200 mls/hr IV Q8H [facility] Last Infusion: 05/31/18 09:40 Dose: Infused Ondansetron HCl (Zofran Inj) 4 mg IVP Q6HR PRN PRN Reason: Nausea / Vomiting Ondansetron HCl (Zofran Odt) 4 mg TL Q6HR PRN PRN Reason: Nausea / Vomiting Pantoprazole Sodium (Protonix) 40 mg IVP BIDAC [facility] Last Admin: 05/31/18 06:16 Dose: 40 mg Polyethylene Glycol (Miralax) 17 gm PO DAILY [facility] Last Admin: 05/31/18 10:30 Dose: 17 gm Prochlorperazine Edisylate (Compazine Inj) 10 mg IVP Q6HR PRN PRN Reason: Nausea / Vomiting Last Admin: 05/29/18 22:33 Dose: 10 mg Senna (Senokot) 8.6 - 17.2 mg PO DAILY [facility] Last Admin: 05/31/18 10:30 Dose: 8.6 mg Sodium Chloride (Normal Saline Flush 0.9%) 10 ml IVP PRN PRN PRN Reason: NEEDED PER PROVIDER ORDERS Last Admin: 05/31/18 06:16 Dose: 10 ml Sodium Chloride (Normal Saline Flush 0.9%) 10 ml IVP 0100,0900,1700 [facility] Last Admin: 05/31/18 09:40 Dose: Not Given Home Medications: FLUoxetine [PROzac] 20 mg PO DAILY 05/29/18 Omeprazole Magnesium [Prilosec] 20 mg PO DAILY 05/29/18 Objective - Vital Signs/Intake & Output Reviewed Vital Signs: Yes Vital Signs: Vital Signs x48h Temp Pulse Resp BP Pulse Ox 05/31/18 14:00 16 05/31/18 13:31 37.2 C 120 H 16 130/82 H 92 05/31/18 12:00 16 05/31/18 10:00 16 05/31/18 08:00 37.4 C 117 H 16 135/90 H 93 Intake & Output: Intake & Output 05/28/18 05/29/18 05/30/18 05/31/18 23:59 23:59 23:59 23:59 Intake Total 3000 2150 1331.667 Output Total 1425 1275 2100 Balance 1575 875 -768.333 - Objective General Appearance: positive: No acute distress Eyes Bilateral: positive: Normal inspection, PERRL, EOMI ENT: positive: ENT inspection nml, Pharynx nml Neck: positive: Nml inspection, Trachea midline Respiratory: positive: No respiratory distress, Breath sounds nml (diminished bases). negative: Wheezes, Rales, Rhonchi Cardiovascular: positive: Regular rate & rhythm, Tachycardia. negative: No murmur, No gallop Peripheral Pulses: 2+ Dorsalis pedis (R), 2+ Dorsalis pedis (L) Abdomen: positive: Tenderness, Other (distended. hypoactive bowel sounds). negative: Guarding, Rebound Skin: positive: Warm, Dry Extremities: positive: Non-tender, Full ROM Neurologic/Psychiatric: positive: Oriented x3, CN's nml (2-12), Motor nml, Sensation nml, Mood/affect nml - Lab Results Fish Bones: 05/31/18 04:30 05/31/18 04:30 Other Labs: Lab Results x24hrs 05/31/18 05/31/18 05/29/18 Range/Units 04:30 04:30 10:40 WBC 16.3 H (4.8-10.8) x10^3/uL RBC 5.06 (4.70-6.10) 10^6/uL Hgb 15.1 (14.0-18.0) g/dL Hct 46.2 (42.0-52.0) % MCV 91.3 (80.0-94.0) fL MCH 29.7 (27.0-31.0) pg MCHC 32.5 (32.0-36.0) g/dL RDW 14.0 (12.0-15.0) % Plt Count 142 (130-450) 10^3/uL MPV 9.7 (7.4-11.4) fL Neut # (Auto) 14.4 H (1.5-6.6) 10^3/uL Lymph # (Auto) 0.7 L (1.5-3.5) 10^3/uL [place] # (Auto) 1.2 H (0.0-1.0) 10^3/uL Eos # (Auto) 0.0 (0.0-0.7) 10^3/uL Baso # (Auto) 0.0 (0.0-0.1) 10^3/uL Absolute Nucleated RBC 0.00 x10^3/uL Nucleated RBC % 0.0 /100WBC Sodium 141 (135-145) mmol/L Potassium 3.8 (3.5-5.0) mmol/L Chloride 104 (101-111) mmol/L Carbon Dioxide 28 (21-32) mmol/L Anion Gap 9.0 (6-13) BUN 19 (6-20) mg/dL Creatinine 0.8 (0.6-1.2) mg/dL Estimated GFR (MDRD) 101 (>89) Glucose 114 H (70-100) mg/dL Calcium 8.8 (8.5-10.3) mg/dL Total Bilirubin 2.0 H (0.2-1.0) mg/dL AST 21 (10-42) IU/L ALT 28 (10-60) IU/L Alkaline Phosphatase 45 (42-121) IU/L C-Reactive Protein 27.0 H (0-1.0) mg/dL Total Protein 6.2 L (6.7-8.2) g/dL Albumin 3.3 (3.2-5.5) g/dL Globulin 2.9 (2.1-4.2) g/dL Albumin/Globulin Ratio 1.1 (1.0-2.2) Amylase 504 H* (28-100) U/L Lipase 164 H (22-51) U/L Hepatitis A IgM Ab (NON-REACTIVE) Hep Bs Antigen (NON-REACTIVE) Hep Bs Immunity Index (> OR = 10) mIU/mL Hep B Core Total Ab (NON-REACTIVE) Hepatitis C Antibody NON-REACTIVE (NON-REACTIVE) Hep C Ab Signal/Cutoff 0.00 (<1.00) 05/29/18 05/29/18 05/29/18 Range/Units 10:40 10:40 06:11 WBC (4.8-10.8) x10^3/uL RBC (4.70-6.10) 10^6/uL Hgb (14.0-18.0) g/dL Hct (42.0-52.0) % MCV (80.0-94.0) fL MCH (27.0-31.0) pg MCHC (32.0-36.0) g/dL RDW (12.0-15.0) % Plt Count (130-450) 10^3/uL MPV (7.4-11.4) fL Neut # (Auto) (1.5-6.6) 10^3/uL Lymph # (Auto) (1.5-3.5) 10^3/uL [place] # (Auto) (0.0-1.0) 10^3/uL Eos # (Auto) (0.0-0.7) 10^3/uL Baso # (Auto) (0.0-0.1) 10^3/uL Absolute Nucleated RBC x10^3/uL Nucleated RBC % /100WBC Sodium (135-145) mmol/L Potassium (3.5-5.0) mmol/L Chloride (101-111) mmol/L Carbon Dioxide (21-32) mmol/L Anion Gap (6-13) BUN (6-20) mg/dL Creatinine (0.6-1.2) mg/dL Estimated GFR (MDRD) (>89) Glucose (70-100) mg/dL Calcium (8.5-10.3) mg/dL Total Bilirubin (0.2-1.0) mg/dL AST (10-42) IU/L ALT (10-60) IU/L Alkaline Phosphatase (42-121) IU/L C-Reactive Protein (0-1.0) mg/dL Total Protein (6.7-8.2) g/dL Albumin (3.2-5.5) g/dL Globulin (2.1-4.2) g/dL Albumin/Globulin Ratio (1.0-2.2) Amylase (28-100) U/L Lipase (22-51) U/L Hepatitis A IgM Ab NON-REACTIVE (NON-REACTIVE) Hep Bs Antigen NON-REACTIVE (NON-REACTIVE) Hep Bs Immunity Index <5 L (> OR = 10) mIU/mL Hep B Core Total Ab (NON-REACTIVE) Hepatitis C Antibody (NON-REACTIVE) Hep C Ab Signal/Cutoff (<1.00) 05/29/18 Range/Units 06:11 WBC (4.8-10.8) x10^3/uL RBC (4.70-6.10) 10^6/uL Hgb (14.0-18.0) g/dL Hct (42.0-52.0) % MCV (80.0-94.0) fL MCH (27.0-31.0) pg MCHC (32.0-36.0) g/dL RDW (12.0-15.0) % Plt Count (130-450) 10^3/uL MPV (7.4-11.4) fL Neut # (Auto) (1.5-6.6) 10^3/uL Lymph # (Auto) (1.5-3.5) 10^3/uL [place] # (Auto) (0.0-1.0) 10^3/uL Eos # (Auto) (0.0-0.7) 10^3/uL Baso # (Auto) (0.0-0.1) 10^3/uL Absolute Nucleated RBC x10^3/uL Nucleated RBC % /100WBC Sodium (135-145) mmol/L Potassium (3.5-5.0) mmol/L Chloride (101-111) mmol/L Carbon Dioxide (21-32) mmol/L Anion Gap (6-13) BUN (6-20) mg/dL Creatinine (0.6-1.2) mg/dL Estimated GFR (MDRD) (>89) Glucose (70-100) mg/dL Calcium (8.5-10.3) mg/dL Total Bilirubin (0.2-1.0) mg/dL AST (10-42) IU/L ALT (10-60) IU/L Alkaline Phosphatase (42-121) IU/L C-Reactive Protein (0-1.0) mg/dL Total Protein (6.7-8.2) g/dL Albumin (3.2-5.5) g/dL Globulin (2.1-4.2) g/dL Albumin/Globulin Ratio (1.0-2.2) Amylase (28-100) U/L Lipase (22-51) U/L Hepatitis A IgM Ab (NON-REACTIVE) Hep Bs Antigen (NON-REACTIVE) Hep Bs Immunity Index (> OR = 10) mIU/mL Hep B Core Total Ab NON-REACTIVE (NON-REACTIVE) Hepatitis C Antibody (NON-REACTIVE) Hep C Ab Signal/Cutoff (<1.00) - Diagnostic Imaging Diagnostic Imaging Results: positive: Final report reviewed Diagnostic Imaging Comments: CT Scan abdomen/pelvis with IV contrast 05/31/2018 -- Redemonstration of acute pancreatitis with probably pancreatic necrosis involving the head and proximal body of the pancreas. Interval increase in the free peritoneal fluid without definite evidence of an abscess. ABX Reporting Has patient been on IV antibiotics over the past 48 hours?: Yes Assessment/Plan - Problem List (1) Acute pancreatitis Impression: CT of the abdomen showed interstial edematous pancreatitis. Causes have been evaluated. He doesn't have diabetes nor elevated triglycerides. His medications are not associated with pancreatitis. He doesn't have prior surgery nor has there been an ERCP. Other ddx includes tumor, pancreas divisum, sphinter of Oddi dysfunction or idiopathic. On admission there was no elevated white cell count, calcium was normal, BUN/Creat normal, LFT's normal. He appears to have mild pancreatitis. Billy's criteria at 0 hours: all negative (<55, < 16K WBC, <200 glucose, <AST 250, and no LDH done). SAPS 3 has age giving him 5 points and all else 0. This appears to be an isolated event without clear etiology and he would be a candidate for endoscopic US to evaluate for ductal abnormalities, tumor, microlithiasis but we don't have that available here. Billy's criteria at 48 hours is 0: Hct stable, BUN increased by 1, Ca >8, Arterial Po2 >60, base deficit <4, fluid needs <6L. CRP was <1 and is now 27. His WBC is now 16, down from 18 yesterday. HR remains elevated in 110-120s. Tmax last 24 hours 37.6C. His abdominal pain is improved. His lipase is down to 164. Redemonstration of acute pancreatitis with probably pancreatic necrosis involving the head and proximal body of the pancreas. Interval increase in the free peritoneal fluid without definite evidence of an abscess. Plan: add meropenem today continue supportive care with pain meds, antiemetics, IVF for hydration ice chips for comfort, will trial clear liquid diet today ambulation, as able repeat daily CBC and CMP Qualifiers: Pancreatitis type: idiopathic (2) Acid indigestion Impression: Hiatal hernia seen on CT. Plan: PPI IV (3) Fatty (change of) liver, not elsewhere classified Impression: seen on imaging. He is developing splenomegaly, LFT's are nml. Plan: weight loss advised. hepatitis serology pending (4) FRANCOISE (obstructive sleep apnea) Impression: ABG today 7.36/47.4/26.3/68.8 Plan: if has severe symptoms while here, consider overnight oximetry. while patient is on high doses of narcotics, watch his respiratory status closely Qualifiers:
--- NOTE | 2018-05-31 16:15 | DISCHARGE SUMMARY ---
Discharge Summary Admit Date: 05/29/18 Discharge Date: 05/31/18 Discharging Provider: Tracie You [facility] Primary Care Provider: Dr. Esthela Quiros Code Status: Attempt Resuscitation Condition at Discharge: Fair Discharge Disposition: 02 Transfer Acute Care Hosp Discharge Facility Name: [facility] - DIAGNOSES Admission Diagnoses: Acute pancreatitis Acid indigestion Fatty (change of) liver, not elsewhere classified FRANCOISE (obstructive sleep apnea) Discharge Diagnoses with Status of Each Condition: Acute pancreatitis, necrotizing, ongoing Acid indigestion, ongoing Fatty (change of) liver, not elsewhere classified, ongoing FRANCOISE (obstructive sleep apnea), stable - HPI History of Present Illness: As Per H&P completed by Dr. Arelis Hi 05/29/2018: 'This is a 53 year old obese white male who rarely drinks alcohol, has no history of gallstones that presents w sudden onset of diffuse abdominal pain at 1 am that woke him from sleep. The pain is nonradiating, diffuse, and without scapula or shoulder pain. He has had no antecedent change in the color of his stool or change in his bowel habits. There is no fever, rigors, or chills. Urine is yellow. He has no previous history of colicky abdominal pain. He came to the ER where he is afebrile and his abdominal pain is now more centered around his epigastrium and LUQ once he received IVF and dilaudid. No rebound, guarding. Severe nausea and dry heaves. Distended. Labs are without elevated WBC but his chemistries reveal lipase >4800 with normal LFT's. CTA was done since his presentation indicated possible aortic disease and he has no gallstones, no AAA, but does have evidence of pancreatitis and mild splenomegaly., He is now admitted for acute pancreatitis.' - HOSPITAL COURSE Hospital Course: Patient was admitted to the hospital for acute pancreatitis. CT of the abdomen in the ER showed interstial edematous pancreatitis. Causes have been evaluated. He doesn't have diabetes nor elevated triglycerides. His medications are not associated with pancreatitis. He doesn't have prior surgery nor has there been an ERCP. Other ddx includes tumor, pancreas divisum, sphinter of Oddi dysfunction or idiopathic. On admission there was no elevated white cell count, calcium was normal, BUN/Creat normal, LFT's normal. He appeared to have mild pancreatitis. Keswick's criteria at 0 hours: all negative (<55, < 16K WBC, <200 glucose, <AST 250, and no LDH done). SAPS 3 has age giving him 5 points and all else 0. Keswick's criteria at 48 hours is 0: Hct stable, BUN increased by 1, Ca >8, Arterial Po2 >60, base deficit <4, fluid needs <6L. CRP was <1 and is now 27. His WBC is now 16, down from 18 yesterday. HR remains elevated in 110s-120s. Tmax last 24 hours 37.6C. His abdominal pain is improved. 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 His lipase is down to 164. Given his elevated temperature, WBC and heart rate, a repeat CT scan was completed today. Per the radiologist, it showed redemonstration of acute pancreatitis with probably pancreatic necrosis involving the head and proximal body of the pancreas. Interval increase in the free peritoneal fluid without definite evidence of an abscess. Meropenem was started. His pain was improved with the dilaudid [employer] SERVICE MANAGER with basal rate in addition to demand dosing. He was able to tolerate the oral contrast without nausea/vo miting today, so he was started on a clear liquid diet. Early into his hospital stay, he developed urinary retention, and a ren was inserted. He likely has an ileus given the inflammation inside of his abdomen. He has not had a bowel movement. He complained of indigestion and IV BID pantoprazole was added. He has a history of obstructive sleep apnea. Unsure if he is on CPAP/BiPAP at home. He has been on 3L NC without evidence of retaining CO2. ABG completed 05/30/2018 7.36/47.4/26.3/68.8 Given his necrotizing pancreatitis, he will be transferred to a higher level of care since we do not have gastroenterology services available at [facility]. I called the transfer center at [facility] and he was accepted for transfer. Dr. Santos is the accepting physician and was given a warm handoff. Patient has a who is local and two daughters in [place]. His daughter, Yuliya, has been updated and notified of patient's transfer. She can be reached at [phone] if needed. His current medications include: Active Medications Acetaminophen (Tylenol) 650 mg AL Q6HR PRN PRN Reason: Pain or Fever > 38C (100.4F) Acetaminophen (Tylenol) 650 mg PO Q6HR PRN PRN Reason: Pain or Fever > 38C (100.4F) Last Admin: 05/31/18 16:18 Dose: 650 mg Hydromorphone HCl (Dilaudid [employer] Teacher 20mg/100ml) 0 mg IV PRN PRN; Protocol PRN Reason: Abdominal Pain Last Admin: 05/30/18 15:43 Dose: 0.2 mg Sodium Chloride (Normal Saline 0.9%) 1,000 mls @ 100 mls/hr IV .Q10H [facility] Last Admin: 05/31/18 15:57 Dose: 100 mls/hr Meropenem 1 gm/ Sodium (Chloride) 100 mls @ 200 mls/hr IV Q8H [facility] Last Admin: 05/31/18 16:06 Dose: 200 mls/hr Ondansetron HCl (Zofran Inj) 4 mg IVP Q6HR PRN PRN Reason: Nausea / Vomiting Ondansetron HCl (Zofran Odt) 4 mg TL Q6HR PRN PRN Reason: Nausea / Vomiting Pantoprazole Sodium (Protonix) 40 mg IVP BIDAC [facility] Last Admin: 05/31/18 16:11 Dose: 40 mg Polyethylene Glycol (Miralax) 17 gm PO DAILY [facility] Last Admin: 05/31/18 10:30 Dose: 17 gm Prochlorperazine Edisylate (Compazine Inj) 10 mg IVP Q6HR PRN PRN Reason: Nausea / Vomiting Last Admin: 05/29/18 22:33 Dose: 10 mg Senna (Senokot) 8.6 - 17.2 mg PO DAILY [facility] Last Admin: 05/31/18 10:30 Dose: 8.6 mg Sodium Chloride (Normal Saline Flush 0.9%) 10 ml IVP PRN PRN PRN Reason: NEEDED PER PROVIDER ORDERS Last Admin: 05/31/18 06:16 Dose: 10 ml Sodium Chloride (Normal Saline Flush 0.9%) 10 ml IVP 0100,0900,1700 [facility] Last Admin: 05/31/18 09:40 Dose: Not Given FLUoxetine [PROzac] 20 mg PO DAILY 05/29/18 - ALLERGIES Allergies/Adverse Reactions: Allergies Allergy/AdvReac Type Severity Reaction Status Date / Time No Known Drug Allergies Allergy Verified 05/29/18 02:09 - MEDICATIONS Home Medications: Ambulatory Orders Medication Instructions Recorded Confirmed FLUoxetine [PROzac] 20 mg PO DAILY 05/29/18 05/29/18 Meropenem [Merrem] 1 gm IV Q8H vial 05/31/18 Pantoprazole [Protonix inj] 40 mg IVP BIDAC vial 05/31/18 - PHYSICAL EXAM AT DISCHARGE General Appearance: positive: No acute distress, Alert Eyes Bilateral: positive: Normal inspection, PERRL, EOMI ENT: positive: Dry mucous membranes Neck: positive: Nml inspection, Trachea midline Respiratory: positive: No respiratory distress, Breath sounds nml, Other (on 2L NC). negative: Wheezes, Rales, Rhonchi (diminished bases. on 3) Cardiovascular: positive: Regular rate & rhythm, Tachycardia. negative: No murmur, No gallop Peripheral Pulses: positive: 2+ Abdomen: positive: Tenderness, Abnml bowel sounds. negative: Guarding, Rebound Skin: positive: Warm, Dry Extremities: positive: Non-tender, Full ROM Neurologic/Psychiatric: positive: Oriented x3, CN's nml (2-12), Motor nml, Sensation nml, Mood/affect nml - LABS Result Diagrams: 05/31/18 04:30 05/31/18 04:30 - DIAGNOSTIC IMAGING Diagnostic Imaging Results: Final report reviewed Diagnostic Imaging Results Comments: CTA abdomen/pelvis 05/29/2018: Acute pancreatitis. No complications seen. Fatty Liver and mile splenomegaly. Hiatal Hernia CT scan abdomen/pelvis 05/31/2018: Acute pancreatitis with probable pancreatic necrosis involving the head and proximal body of the pancreas. - FOLLOW UP Follow Up: Follow-up with PCP after hospitalization from [facility] - TIME SPENT Time Spent in Discharge (Minutes): 60
--- NOTE | 2018-05-31 16:23 | Discharge Plan ---
Discharge Plan Disposition: 02 Transfer Acute Care Hosp Condition: Fair Diet: Regular (currently a clear liquid diet, as tolerated) Shower Restrictions: No Driving Restrictions: No Weight Bearing: Full Weight Additional Instructions or Follow Up instructions: You were admitted for acute pancreatitis (inflammation of the pancreas). Your white blood cell count increased on 05/30/[address] scan was completed that revealed you have developed necrotizing pancreatitis. You are being transferred to [facility] for a higher level of care. No Smoking: If you smoke, Please STOP! Call for help. Follow-up with: Esthela Quiros MD [Primary Care Provider] -
[2018-05-31 17:50] VITALS: BP 148/93
== END 2018-05-31 18:27 | disposition short-term general hospital (02) | DRG 439 ==
LOC: ED 01:59 → MS2 03:48
PROVIDERS: ADMIT Specialist; ATTEND Nurse Practitioner
DX: K85.91 Acute pancreatitis with uninfected necrosis, unspecified (principal); K56.7 Ileus, unspecified; K21.9 Gastro-esophageal reflux disease without esophagitis; K44.9 Diaphragmatic hernia without obstruction or gangrene; F32.9 Major depressive disorder, single episode, unspecified; Z90.49 Acquired absence of other specified parts of digestive tract; G47.33 Obstructive sleep apnea (adult) (pediatric); K76.0 Fatty (change of) liver, not elsewhere classified; R33.9 Retention of urine, unspecified; R16.1 Splenomegaly, not elsewhere classified; Z87.891 Personal history of nicotine dependence
CPT/HCPCS: 36415; 36600; 74174; 74177; 80048; 80053; 80061; 80074; 81001; 81003; 82150; 82803; 83690; 83721; 84132; 84484; 85025; 86140; 86317; 86704; 86709; 86803; 87086; 87340; 93005; 96374; 96376; 99284; 99285

== ENCOUNTER 2018-05-31 18:30 | Outpatient (CLI) | payer BC, OTHER | END 2018-05-31 18:31 | disposition short-term general hospital (02) | LOC: EMS 18:30 | PROVIDERS: ATTEND Surgery | DX: K85.91 Acute pancreatitis with uninfected necrosis, unspecified (principal); R09.02 Hypoxemia | CPT/HCPCS: A0425; A0426 ==

== ENCOUNTER 2018-07-06 10:10 | Outpatient (CLI) | payer BC, OTHER | END 2018-07-06 10:11 | disposition home or self-care (01) | LOC: SC 10:10 | PROVIDERS: ATTEND Internal Medicine Pulmonary Disease | DX: G47.10 Hypersomnia, unspecified (principal); R06.83 Snoring; R06.81 Apnea, not elsewhere classified; G47.8 Other sleep disorders | CPT/HCPCS: 99212; 99213 ==

== ENCOUNTER 2018-07-24 19:32 | Outpatient (CLI) | payer BC, OTHER | END 2018-07-24 19:33 | disposition home or self-care (01) | LOC: SC 19:32 | PROVIDERS: ATTEND Internal Medicine Pulmonary Disease | DX: G47.61 Periodic limb movement disorder (principal) | CPT/HCPCS: 95810 ==

== ENCOUNTER 2018-08-09 09:24 | Outpatient (CLI) | payer BC, OTHER ==
[2018-08-09 14:20] LABS: BASOPHILS % (AUTO) 0.6 %; EOSINOPHILS # (AUTO) 0.1 10^3/uL (0.0-0.7); EOSINOPHILS % (AUTO) 2.4 %; HGB - HEMOGLOBIN 12.8 g/dL (14.0-18.0); LYMPHOCYTES # (AUTO) 1.2 10^3/uL (1.5-3.5); LYMPHOCYTES % (AUTO) 20.7 %; MEAN CORPUSCULAR HEMOGLOBIN 28.7 pg (27.0-31.0); MEAN CORPUSCULAR HGB CONC 32.8 g/dL (32.0-36.0); MEAN CORPUSCULAR VOLUME 87.6 fL (80.0-94.0); MEAN PLATELET VOLUME 9.6 fL (7.4-11.4); MONOCYTES # (AUTO) 0.7 10^3/uL (0.0-1.0); MONOCYTES % (AUTO) 13.3 %; NEUTROPHILS # (AUTO) 3.5 10^3/uL (1.5-6.6); PLT - PLATELET COUNT 232 10^3/uL (130-450); RED BLOOD COUNT 4.44 10^6/uL (4.70-6.10); RED CELL DISTRIBUTION WIDTH 14.9 % (12.0-15.0); WHITE BLOOD COUNT 5.6 x10^3/uL (4.8-10.8)
[2018-08-09 14:32] LABS: ALBUMIN 3.8 g/dL (3.2-5.5); ALBUMIN/GLOBULIN RATIO 1.1 (1.0-2.2); BILIRUBIN,TOTAL 0.6 mg/dL (0.2-1.0); CALCIUM 9.4 mg/dL (8.5-10.3); CREATININE 0.8 mg/dL (0.6-1.2); TOTAL PROTEIN 7.2 g/dL (6.7-8.2)
== END 2018-08-09 09:25 | disposition home or self-care (01) ==
LOC: LAB.WCP 09:24
PROVIDERS: ATTEND Family Medicine
DX: K85.91 Acute pancreatitis with uninfected necrosis, unspecified (principal); K86.3 Pseudocyst of pancreas
CPT/HCPCS: 36415; 80053; 85025; 87070; 87205

== ENCOUNTER 2018-09-02 08:15 | Outpatient (CLI) | payer BC, OTHER | END 2018-09-02 08:16 | disposition home or self-care (01) | LOC: SC 08:15 | PROVIDERS: ATTEND Nurse Practitioner Family | DX: R06.83 Snoring (principal); G47.61 Periodic limb movement disorder | CPT/HCPCS: 87070; 87205; 99212; 99214 ==

== ENCOUNTER 2018-10-08 09:06 | Outpatient (CLI) | payer BC, OTHER ==
[2018-10-08 14:03] LABS: ALBUMIN 4.4 g/dL (3.2-5.5); ALBUMIN/GLOBULIN RATIO 1.5 (1.0-2.2); ALKALINE PHOSPHATASE 54 IU/L (42-121); ALT ALANINE AMINOTRANSFERASE 35 IU/L (10-60); AST ASPARTATE AMINOTRANSFERASE 17 IU/L (10-42); BILIRUBIN,TOTAL 0.9 mg/dL (0.2-1.0); BUN - BLOOD UREA NITROGEN 19 mg/dL (6-20); CALCIUM 9.6 mg/dL (8.5-10.3); CARBON DIOXIDE - CO2 25 mmol/L (21-32); CHLORIDE 105 mmol/L (101-111); CHOL/HDL RATIO 4.2 (<5.0); CHOLESTEROL 173 mg/dL; CREATININE 0.8 mg/dL (0.6-1.2); GFR - MDRD 101 (>89); GLUCOSE 93 mg/dL (70-100); HDL CHOLESTEROL 41 mg/dL; LDL CHOLESTEROL,CALCULATED 106 mg/dL; LDL/HDL RATIO 2.6 (<3.6); SODIUM 138 mmol/L (135-145); TOTAL PROTEIN 7.4 g/dL (6.7-8.2); VLDL CHOLESTEROL 26 mg/dL
== END 2018-10-08 09:07 | disposition home or self-care (01) ==
LOC: LAB.WCP 09:06
PROVIDERS: ATTEND Family Medicine
DX: E78.5 Hyperlipidemia, unspecified (principal); F41.9 Anxiety disorder, unspecified
CPT/HCPCS: 36415; 80053; 80061; 83721; 84443